=== PATIENT | female | born 1965 | race Caucasian/White ===

== ENCOUNTER → 2017-11-28 | Day surgery (SDC) | payer BC ==
[~2017-11-28] MED LIST: BENAZEPRIL HCL40 MG PO; BENAZEPRIL PO; FENTANYL CITRATE/PF 100MCG/2 ML INJ ONE; GLUCAGON FOR INJ 1 MG VIAL ONE; HYOSCYAMINE SULFATE 0.5 MG/ML AMP ONE; LIDOCAINE HCL 2% LOCAL INJ 5 ML SDV VIAL INJ ONE; LOSARTAN-HCTZ1 EAC1 PO; METOPROLOL PO; METOPROLOL TART50 MG PO; MIDAZOLAM HCL 2 MG/2 ML VIAL ONE; PANTOPRAZOLE SO40 MG PO; PROPOFOL IV EMULSION 10 MG/ML 50 ML VIAL ONE; VIT D PO; VITAMIN E400 UNI2 PO; Z.0.AZOR 5-40 MG T1 PO; [UNRECOGNIZED DRUG - OTHER] PO
--- NOTE | 2017-11-28 15:34 | Operative Report ---
DATE OF PROCEDURE: November 28, 2017 REFERRING PHYSICIAN: Dr. Nata Morrison. PROCEDURES PERFORMED 1. Esophagogastroduodenoscopy with biopsies. 2. Colonoscopy with polypectomy. INDICATIONS FOR EGD: Heartburn and indigestion. INDICATIONS FOR COLONOSCOPY: Colorectal cancer screening, history of colon polyps. MEDICATION: Patient was done under MAC. Please see anesthesiologist's note. PROCEDURE: With the patient in left lateral decubitus position, flexible fiberoptic Olympus gastroscope was introduced into the esophagus under direct visualization without any difficulty. There was some patchy erythema noted in the distal esophagus. The scope was then advanced with ease into the stomach. Mucosa overlying the antrum and the body revealed some patchy erythema and low-grade to moderate edema and biopsies were obtained and sent to stain for H. pylori. Multiple hyperplastic-appearing polyps were noted in the body, some were partially excised with the cold biopsy forceps. The pylorus was of normal contour and shape, was intubated with ease, and the scope was advanced into the terminal ileum. There were some minimal scalloping of some of the folds in the proximal second portion of the duodenum and biopsies were obtained to rule out sprue. The duodenal bulb mucosa was excessively nodular and biopsies were obtained. The scope was then withdrawn back into the stomach and mucosa overlying the fundus and the cardia appeared to be within normal limits. The scope was then straightened out. The stomach was decompressed. The scope was subsequently withdrawn. Patient tolerated the procedure well. IMPRESSION 1. Distal esophagitis. 2. Gastritis, biopsied, biopsies sent to stain for Helicobacter pylori. 3. Gastric polyps, multiple, body, some partially excised with the cold biopsy forceps. 4. Duodenal bulb, nodular, biopsied. 5. Rule out sprue. PLAN: Follow up histology. Initiate Protonix 40 mg 1 p.o. q.a.m. a.c. Patient was then turned around. After adequate lubrication of the anal canal, flexible fiberoptic Olympus colonoscope was inserted into the rectum with ease and advanced all the way to the cecum. It was then withdrawn slowly. Mucosa overlying the cecum, ascending colon, transverse colon, and descending colon appeared to be within normal limits. Three polyps were hot biopsied from the sigmoid colon. The rectum grossly appeared to be within normal limits. The scope was then retroflexed into the distal rectum and small internal hemorrhoids were noted, none of which was actively bleeding. The scope was then straightened out. It was subsequently withdrawn. Patient tolerated procedure well. IMPRESSION 1. Sigmoid colon polyps x3, hot biopsied. 2. Internal hemorrhoids, none actively bleeding. PLAN: Follow up histology. Initiate high-fiber, low-fat diet. Initiate high-fiber supplement. Patient might benefit from a followup colonoscopy in 3 to 5 years. Job#: [id number] AKU cc:DR. NATA MORRISON
== END | disposition home or self-care (01) ==
LOC: OR 10:18
PROVIDERS: ATTEND Internal Medicine Gastroenterology
DX: Z12.11 Encounter for screening for malignant neoplasm of colon (principal); K63.5 Polyp of colon; K31.7 Polyp of stomach and duodenum; K29.70 Gastritis, unspecified, without bleeding; K20.9 Esophagitis, unspecified; K31.89 Other diseases of stomach and duodenum; K21.9 Gastro-esophageal reflux disease without esophagitis; K64.8 Other hemorrhoids; K76.0 Fatty (change of) liver, not elsewhere classified; I10 Essential (primary) hypertension; D50.9 Iron deficiency anemia, unspecified; F41.9 Anxiety disorder, unspecified; Z88.8 Allergy status to other drugs, medicaments and biological substances; Z01.810 Encounter for preprocedural cardiovascular examination; Z68.31 Body mass index [BMI] 31.0-31.9, adult
CPT/HCPCS: 43239; 45384; 81025; 93005; J1610; J1980; J2001; J2250; 45378

== ENCOUNTER → 2018-04-27 | Outpatient (CLI) | payer BC ==
[~2018-04-27] MED LIST changes: -FENTANYL CITRATE/PF 100MCG/2 ML INJ ONE; -GLUCAGON FOR INJ 1 MG VIAL ONE; -HYOSCYAMINE SULFATE 0.5 MG/ML AMP ONE; -LIDOCAINE HCL 2% LOCAL INJ 5 ML SDV VIAL INJ ONE; -MIDAZOLAM HCL 2 MG/2 ML VIAL ONE; -PROPOFOL IV EMULSION 10 MG/ML 50 ML VIAL ONE
== END ==
LOC: MAMMO 09:04
PROVIDERS: ATTEND Family Medicine
DX: Z12.31 Encounter for screening mammogram for malignant neoplasm of breast (principal)
CPT/HCPCS: 77067

== ENCOUNTER → 2018-05-27 | Outpatient (CLI) | payer BC ==
--- NOTE | 2018-05-28 08:56 | Diagnostic Imaging Report ---
#[id number] - USBRELIMRT ULTRASOUND OF THE RIGHT BREAST : 05/27/2018 Comparison is made to exams dated: 05/27/2018 mammogram and 04/27/2018 mammogram - [facility]. Color flow and real-time ultrasound were performed on the right breast at the 1 o'clock position. There is a 0.9 x 0.5 x 0.8 cm benign cyst at the 1 o'clock position 4 cm from the nipple. IMPRESSION: BENIGN - FOLLOW-UP RECOMMENDED There is no sonographic evidence of malignancy. A follow-up mammogram in 4 months is recommended to re-evaluate the left breast calcifications. The patient was notified of the results of this exam and the mammogram performed today. Tevin Carrera Jr., D.O. cw/:05/27/2018 14:49:44 Cement Conveyor Operator: ANSHU LI RDND, [facility] letter sent: Normal Exam Ultrasound BI-RADS: 2 Benign
--- NOTE | 2018-05-28 08:56 | Diagnostic Imaging Report ---
#[id number] - MGDXBIL #BILATERAL DIGITAL DIAGNOSTIC MAMMOGRAM WITH SPOT COMPRESSION AND MAGNIFICATION: 05/27/2018 Comparison is made to exam dated: 04/27/2018 mammogram - [facility]. Current study contains 9 films. The tissue of both breasts is heterogeneously dense. This may lower the sensitivity of mammography. -The calcifications in the left breast at 1 o'clock posterior depth are indeterminate; followup in 4 months recommended -The calcifications in the right breast anterior depth lateral aspect of the breast have a benign appearance -Mass in the right breast at 1 o'clock anterior depth is persistent and likely represents a cyst of which ultrasound performed today confirms this to be a cyst. IMPRESSION: PROBABLY BENIGN 1. Indeterminate left breast calcifications. The patient has had a prior mammogram and if these become available then comparison would be important. 2. If no old mammograms are able to be found then a follow-up mammogram of the left breast in 4 months is recommended. 3. The patient was notified of these results and the need for followup. Tevin Carrera Jr., D.O. cw/:05/27/2018 15:32:02 Economics Lecturer: Susan FOOTE(Julissa)(M), [facility] letter sent: Followup Recommended Mammogram BI-RADS: 3 Probably benign
== END ==
LOC: MAMMO 10:15
PROVIDERS: ATTEND Family Medicine
DX: R92.8 Other abnormal and inconclusive findings on diagnostic imaging of breast (principal)
CPT/HCPCS: 77066

== ENCOUNTER → 2018-09-23 | Outpatient (CLI) | payer BC ==
--- NOTE | 2018-09-24 08:32 | Diagnostic Imaging Report ---
#[id number] - MGDXLT #UNILATERAL LEFT DIGITAL DIAGNOSTIC MAMMOGRAM WITH CAD SHORT-TERM FOLLOW-UP: 09/23/2018 Comparison is made to exams dated: 05/27/2018 mammogram and 04/27/2018 mammogram - [facility]. The tissue of the left breast is heterogeneously dense. This may lower the sensitivity of mammography. Current study was also evaluated with a Computer Aided Detection (CAD) system. There are clustered indistinct calcifications in the left breast at 1 o'clock posterior depth. These are seen in additional views. No other significant masses or calcifications are seen in the breast. IMPRESSION: SUSPICIOUS OF MALIGNANCY The clustered indistinct calcifications in the left breast are at a low suspicion for malignancy. A stereotactic biopsy is recommended. Findings were discussed with the patient. A phone call was made to the physician's office and findings discussed with Dr. Kumar's nurse Nannette. The patient will be contacted by the Mammography Department to schedule this appointment. EVELYN VELASCO M.D. ct/:09/23/2018 16:15:45 Rn Admissions: Susan FOOTE(Julissa)(Brigida), [facility] letter sent: Biopsy Required Mammogram BI-RADS: 4a Suspicious abnormality - low suspicion for malignancy
== END ==
LOC: MAMMO 15:13
PROVIDERS: ATTEND Family Medicine
DX: R92.8 Other abnormal and inconclusive findings on diagnostic imaging of breast (principal)

== ENCOUNTER → 2018-10-14 | Outpatient (CLI) | payer BC ==
[~2018-10-14] MED LIST changes: +LIDOCAINE 2% /EPINEPHRINE 20 ML SDV INJ ONE; +LIDOCAINE HCL 1% LOCAL INJ 20 ML VIAL ONE; +SODIUM CHLORIDE 0.9% 250ML 250 ML ONE
--- NOTE | 2018-10-15 08:50 | Diagnostic Imaging Report ---
#[id number] - [id number] STEREOTACTIC GUIDED BIOPSY LEFT BREAST USING VACUUM DEVICE WITH MARKING DEVICE INSERTED: 10/14/2018 PATIENT CONSENT: According to [facility] requirements, a time out was performed, correct site was localized and the patient was consented. Correlation is made to exams dated: 09/23/2018 mammogram, 05/27/2018 mammogram and 04/27/2018 mammogram - [facility]. A stereotactic guided biopsy was performed for the clustered calcifications located in the left breast at 1 o'clock posterior depth. This was described on the previous mammography report. The calciifcations are faint and very difficult to localize due to their posterior location. The skin was prepped in the usual manner. A small incision was made in the breast. The abnormality was approached from the lateral aspect using an upright mammography unit. A 12 gauge biopsy needle was placed as close as possible to the abnormality under computer guidance and confirmatory stereotactic mammography images were obtained to document needle placement. Once the needle was documented to be in the correct location, multiple specimens were obtained using a vacuum assisted device. The patient received additional local anesthetic during the procedure. A clip was inserted into the biopsy cavity. The specimen was sent to the laboratory for pathological analysis. IMPRESSION: STEREOTACTIC GUIDED BIOPSY Stereotactic guided biopsy of the calcifications in the left breast at 1 o'clock posterior depth was performed without complication. Waiting for pathology results. A final report will be issued when these become available. If pathology results do not indicate presence of signiifcant calcifications, short term mammogram in 3-4 weeks is recommended to evaluate residual calcifications and need for short term followup versus rebiopsy using needle localization. The findings and possible additional steps were discussed in depth with the patient. EVELYN VELASCO M.D. ct/:10/14/2018 17:10:16 General Supervisor: Susan BENEDICT)(Brigida), [facility] [id number]
== END ==
LOC: MAMMO 12:35
PROVIDERS: ATTEND Family Medicine
DX: R92.1 Mammographic calcification found on diagnostic imaging of breast (principal)
CPT/HCPCS: 19081; 88305; J2001 ×2; J7050

== ENCOUNTER → 2018-11-18 | Outpatient (CLI) | payer BC ==
[~2018-11-18] MED LIST changes: -LIDOCAINE 2% /EPINEPHRINE 20 ML SDV INJ ONE; -LIDOCAINE HCL 1% LOCAL INJ 20 ML VIAL ONE; -SODIUM CHLORIDE 0.9% 250ML 250 ML ONE
--- NOTE | 2018-11-19 09:41 | Diagnostic Imaging Report ---
#[id number] - MGDXLT #UNILATERAL LEFT DIGITAL DIAGNOSTIC MAMMOGRAM WITH CAD WITH MAGNIFICATION SHORT-TERM FOLLOW-UP: 11/18/2018 Comparison is made to exams dated: 10/14/2018 stereotactic biopsy, 09/23/2018 mammogram, 05/27/2018 mammogram and 04/27/2018 mammogram - [facility]. The tissue of the left breast is heterogeneously dense. This may lower the sensitivity of mammography. Current study was also evaluated with a Computer Aided Detection (CAD) system. There are clustered indistinct calcifications in the left breast at 1 o'clock posterior depth. These are seen in additional views. There is a biopsy clip lateral to the cluster of calcifications. No other significant masses or calcifications are seen in the breast. IMPRESSION: SUSPICIOUS OF MALIGNANCY The cluster of calcifications in the left breast are still present and are at a low suspicion for malignancy. The findings were discussed with the patient, with the option to follow the calcifications with 6 month mammogram. The patient desires biopsy rather than following them, and will be scheduled for repeat stereotactic biopsy using a another biopsy system at a different location. The patient will be contacted by the Mammography Department to schedule this appointment. EVELYN VELASCO M.D. ct/:11/18/2018 17:19:52 Holiday Detector Operator: Susan BENEDICT)(Brigida), [facility] letter sent: Biopsy Required Mammogram BI-RADS: 4a Suspicious abnormality - low suspicion for malignancy
== END ==
LOC: MAMMO 14:45
PROVIDERS: ATTEND Family Medicine
DX: R92.1 Mammographic calcification found on diagnostic imaging of breast (principal)

== ENCOUNTER → 2021-05-25 | Day surgery (SDC) | payer BC ==
[~2021-05-25] MED LIST changes: +CALCIUM ACETAT667 MG PO; +FEMARA2.5 MG PO; +FENTANYL CITRATE/PF 100MCG/2 ML INJ ONE; +HYOSCYAMINE SULFATE 0.5 MG/ML INJ ONE; +LIPITOR10 MG PO; +METFORMIN HCL500 MG PO; +MIDAZOLAM HCL 2 MG/2 ML VIAL ONE; +PROPOFOL IV EMULSION 10 MG/ML 20 ML VIAL ONE; +ZINC PO
[2021-05-25 11:45] VITALS: BP 129/88
== END | disposition home or self-care (01) ==
LOC: OR 07:35
PROVIDERS: ATTEND Internal Medicine Gastroenterology
DX: Z09 Encounter for follow-up examination after completed treatment for conditions other than malignant neoplasm (principal); K63.5 Polyp of colon; K64.8 Other hemorrhoids; K29.70 Gastritis, unspecified, without bleeding; K21.9 Gastro-esophageal reflux disease without esophagitis; Z71.3 Dietary counseling and surveillance; K74.60 Unspecified cirrhosis of liver; I10 Essential (primary) hypertension; Z88.8 Allergy status to other drugs, medicaments and biological substances; Z01.810 Encounter for preprocedural cardiovascular examination; Z01.812 Encounter for preprocedural laboratory examination; Z20.822 Contact with and (suspected) exposure to COVID-19; Z79.899 Other long term (current) drug therapy; Z68.28 Body mass index [BMI] 28.0-28.9, adult; Z86.2 Personal history of diseases of the blood and blood-forming organs and certain disorders involving the immune mechanism; Z85.3 Personal history of malignant neoplasm of breast
CPT/HCPCS: 36415; 45380; 82948; 93005; J1980; J2250; J2704; J3010; U0002; 45378

== ENCOUNTER → 2021-07-06 | Day surgery (SDC) | payer BC ==
[2021-07-05 08:17] LABS: BASOPHILS % 0.5 % (0.0-1.0); EOSINOPHILS # (AUTO) 0.2 (0.0-0.4); EOSINOPHILS % 3.7 % (0.0-6.0); HEMATOCRIT 38.5 % (34.2-44.1); HEMOGLOBIN 12.2 g/dL (12.0-16.0); LYMPHOCYTES # (AUTO) 1.5 (1.0-3.2); LYMPHOCYTES % 36.3 % (18.0-39.1); MEAN CORPUSCULAR HEMOGLOBIN 27.4 pg (28-32); MEAN CORPUSCULAR HGB CONC 31.7 g/dL (31-35); MEAN CORPUSCULAR VOLUME 86.5 fL (81-99); MONOCYTES # (AUTO) 0.5 (0.2-0.8); MONOCYTES % 12.5 % (4.4-11.3); NEUTROPHILS # (AUTO) 1.9 (2.1-6.9); NEUTROPHILS % 46.8 % (38.7-80.0); PLATELET COUNT 100 x10e3/uL (140-360); RED BLOOD COUNT 4.45 x10e6/uL (3.6-5.1); RED CELL DISTRIBUTION WIDTH 17.9 % (11.7-14.4)
[~2021-07-06] MED LIST changes: -FENTANYL CITRATE/PF 100MCG/2 ML INJ ONE; +FIBER PO; -HYOSCYAMINE SULFATE 0.5 MG/ML INJ ONE; +IRON PO
[2021-07-06 12:04] LABS: INR 1.06; PROTHROMBIN TIME 14.8 seconds (11.9-14.5)
[2021-07-06 12:05] LABS: PARTIAL THROMBOPLASTIN TIME 27.5 seconds (23.8-35.5)
[2021-07-06 12:15] VITALS: BP 159/76
== END | disposition home or self-care (01) ==
LOC: OR 08:55
PROVIDERS: ATTEND Internal Medicine Gastroenterology
DX: D50.9 Iron deficiency anemia, unspecified (principal); K31.7 Polyp of stomach and duodenum; K29.70 Gastritis, unspecified, without bleeding; D72.820 Lymphocytosis (symptomatic); K22.10 Ulcer of esophagus without bleeding; K21.9 Gastro-esophageal reflux disease without esophagitis; Z86.010 Personal history of colon polyps; Z71.3 Dietary counseling and surveillance; D64.89 Other specified anemias; K75.81 Nonalcoholic steatohepatitis (NASH); I10 Essential (primary) hypertension; E78.5 Hyperlipidemia, unspecified; E11.9 Type 2 diabetes mellitus without complications; Z88.8 Allergy status to other drugs, medicaments and biological substances; Z01.812 Encounter for preprocedural laboratory examination; Z20.822 Contact with and (suspected) exposure to COVID-19; Z79.84 Long term (current) use of oral hypoglycemic drugs; Z79.899 Other long term (current) drug therapy; Z68.28 Body mass index [BMI] 28.0-28.9, adult; Z85.3 Personal history of malignant neoplasm of breast
CPT/HCPCS: 36415 ×2; 43239; 43251; 82948; 85025; 85610; 85730; C9113; J2250; J2704; J3430; U0002

== ENCOUNTER → 2021-09-21 | Day surgery (SDC) | payer BC ==
[~2021-09-21] MED LIST changes: +FENTANYL CITRATE/PF 100MCG/2 ML INJ ONE; +SUCRALFATE1 GM PO
[2021-09-21 08:30] VITALS: BP 141/86
[2021-09-27 15:13] LABS: ENDOMYSIAL ANTIBODIES, IGA Negative (Negative)
== END | disposition home or self-care (01) ==
LOC: OR 06:19
PROVIDERS: ATTEND Internal Medicine Gastroenterology
DX: K31.7 Polyp of stomach and duodenum (principal); K29.70 Gastritis, unspecified, without bleeding; K22.89 Other specified disease of esophagus; K21.9 Gastro-esophageal reflux disease without esophagitis; K76.0 Fatty (change of) liver, not elsewhere classified; I10 Essential (primary) hypertension; Z01.810 Encounter for preprocedural cardiovascular examination; Z01.812 Encounter for preprocedural laboratory examination; Z20.822 Contact with and (suspected) exposure to COVID-19; Z79.84 Long term (current) use of oral hypoglycemic drugs; Z79.899 Other long term (current) drug therapy
CPT/HCPCS: 0223U; 36415 ×2; 43239; 43251; 82784; 82948; 83516; 86256; 93005; C9113; J2250; J2704; J3010

== ENCOUNTER → 2021-10-25 | Day surgery (SDC) | payer BC ==
[~2021-10-25] MED LIST changes: +OCALIVA PO
[2021-10-25 14:15] VITALS: BP 118/67
[2021-10-29 16:10] LABS: ENDOMYSIAL ANTIBODIES, IGA Negative (Negative)
== END | disposition home or self-care (01) ==
LOC: OR 10:02
PROVIDERS: ATTEND Internal Medicine Gastroenterology
DX: K31.7 Polyp of stomach and duodenum (principal); K29.60 Other gastritis without bleeding; K21.9 Gastro-esophageal reflux disease without esophagitis; Z86.010 Personal history of colon polyps; K75.81 Nonalcoholic steatohepatitis (NASH); Z71.3 Dietary counseling and surveillance; D50.9 Iron deficiency anemia, unspecified; I10 Essential (primary) hypertension; I45.10 Unspecified right bundle-branch block; E11.9 Type 2 diabetes mellitus without complications; M19.90 Unspecified osteoarthritis, unspecified site; M54.50 Low back pain, unspecified; E78.5 Hyperlipidemia, unspecified; Z01.810 Encounter for preprocedural cardiovascular examination; Z01.812 Encounter for preprocedural laboratory examination; Z20.822 Contact with and (suspected) exposure to COVID-19; Z79.84 Long term (current) use of oral hypoglycemic drugs; Z79.899 Other long term (current) drug therapy; Z68.27 Body mass index [BMI] 27.0-27.9, adult; Z85.3 Personal history of malignant neoplasm of breast; Z92.3 Personal history of irradiation
CPT/HCPCS: 0223U; 36415 ×2; 43251; 82784; 82948; 83516; 86256; 93005; C9113; J2250; J2704; J3010; 43239

== ENCOUNTER → 2022-08-30 | Day surgery (SDC) | payer BC ==
[~2022-08-30] MED LIST changes: +AMLODIPINE BESY10 MG PO; -FENTANYL CITRATE/PF 100MCG/2 ML INJ ONE; +FIBER625 MG; +LACTATED RINGER'S 1,000 ML ONE; +LIDOCAINE HCL 2% LOCAL INJ 5 ML SDV VIAL INJ ONE; -MIDAZOLAM HCL 2 MG/2 ML VIAL ONE; +POVIDONE IODINE 0.05% 0.05 % ML PO ONE; +VITAMIN D3125 MCG; +VITAMIN D31250 MCG; +VITAMIN E180 MG; +ZINC50 MG
[2022-08-30 11:42] VITALS: TEMP 97
[2022-08-30 12:02] VITALS: BP 144/85; PULSE 68; RESP 18; O2SAT 99
== END | disposition home or self-care (01) ==
LOC: ENDO 11:42
PROVIDERS: ATTEND Internal Medicine Gastroenterology
DX: K31.7 Polyp of stomach and duodenum (principal); K29.70 Gastritis, unspecified, without bleeding; K20.90 Esophagitis, unspecified without bleeding; K31.89 Other diseases of stomach and duodenum; K21.9 Gastro-esophageal reflux disease without esophagitis; Z71.3 Dietary counseling and surveillance; R06.83 Snoring; I10 Essential (primary) hypertension; E78.5 Hyperlipidemia, unspecified; Z88.8 Allergy status to other drugs, medicaments and biological substances; Z79.84 Long term (current) use of oral hypoglycemic drugs; Z79.899 Other long term (current) drug therapy; Z68.27 Body mass index [BMI] 27.0-27.9, adult
CPT/HCPCS: 36415; 43251; 82948; C9113; J2001; J2704; J7121; 43235